=== PATIENT | male | born 1945 | race Caucasian/White ===

== ENCOUNTER → 2016-11-29 | Outpatient (CLI) | payer OTHER ==
[~2016-11-29] VITALS: Ht 185.4 cm; Wt 88.5 kg
[~2016-11-29] MED LIST: ASPIRIN325 PO; ATORVASTATIN CA40 MG PO; CARVEDILOL25 MG PO; IPRATROPIUM BRO15 ML NASAL; KRILL OIL500 MG PO; LUTEIN20 MG PO; METFORMIN HCL500 MG PO; MOVE FREE JOIN1 EACH PO; NORVASC5 MG PO; QUINAPRIL 20 MG20 MG PO
--- NOTE | ~2016-11-29 | EKG ---
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1945 Requested By: Demetrio Calderón Order Number: [id number] MD: Ruddy Khalil Measurements Intervals Condon Rate: 57 P: 17 IN: 167 QRS: -23 QRSD: 171 T: 85 QT: 489 QTc: 477 Interpretive Statements Sinus rhythm Left bundle branch block Compared to ECG 02/18/2004 08:51:00 No significant changes Electronically Signed On 11-29-2016 9:59:28 CDT by Ruddy Khalil [email or web address] <ELECTRONICALLY SIGNED> By: Ruddy Khalil MD, [facility] 11/29/1659 0 0 Ruddy Khalil MD, [facility] /EPI
--- NOTE | ~2016-11-29 | S ---
[facility] [place] [address] [place] [address] SURGICAL PATH RPT PROCEDURE Name: THERON FINCH Room #: REG [facility].#: [id number] Admission: 11/29/16 Date of : 43 Discharge: Report #: [id number] Path Case #: [id number] PATHOLOGY REPORT COLLECTION DATE: 11/29/2016 RECEIVED DATE: 11/30/2016 SUBMITTING PHYS: Dr. Demetrio Calderón OTHER PHYS: Dr. Ga Jones SPECIMEN(S) RECEIVED: A.Polyp-proximal ascending colon B.Polyp-hepatic flexure C.Polyp-50 cm D.Polyp-rectum * * * * * * * * * * * * FINAL DIAGNOSIS: A. "Polyp-proximal ascending colon," biopsy: - Tubular adenoma; no high-grade dysplasia. B. "Polyp-hepatic flexure," biopsy: - Colonic mucosa with focal hyperplastic change, consistent with hyperplastic polyp. C. "Polyp-50 cm," biopsy: - Tubular adenoma; no high-grade dysplasia. D. "Polyp-rectum," biopsy: - Hyperplastic polyp. (CLW:; 12/03/2016) PATHOLOGIST: Tati Johnston M.D. REPORT ELECTRONICALLY SIGNED BY: Tati Johnston M.D. DATE/TIME: 12/03/2016 21:19 * * * * * * * * * * * * GROSS PATHOLOGY: A. The specimen is received in formalin, labeled "Theron Finch, proximal ascending colon" and consists of a 0.3 cm kiser mucosal biopsy. Totally submitted as A1. B. The specimen is received in formalin, labeled "Theron Finch, polyp hepatic flexure" and consists of a 0.5 cm kiser mucosal biopsy. Totally submitted B1. C. The specimen is received in formalin, labeled "Theron Finch, polyp at 50 cm" and consists of a 0.3 cm kiser mucosal biopsy. Totally submitted as C1. D. The specimen is received in formalin, labeled "WilliansigTheron, polyp rectum" and consists of a 0.3 cm kiser mucosal biopsy. Totally submitted as D1. [address] [place] [address] SURGICAL PATH RPT PROCEDURE Name: THERON FINCH R Room #: REG [facility].#: [id number] Admission: 11/29/16 Date of : 43 Discharge: Report #: [id number] Path Case #: [id number] (CHIP; 11/30/2016) CLINICAL HISTORY: Colon polyps INITIAL CPT CODE(S): A; 61821 B; 22099 C; 59920 D; 26955 Professional services performed by [facility] at [address], [place] [address] Technical services performed by [facility] at [address] [place] [address], [facility] [address], [place] [address]. [facility] [address] [address] PHONE: [phone] DIRECTOR: Jose E Doss M.D. * * * END OF REPORT * * *
--- NOTE | ~2016-11-29 | P ---
[facility] [place] [address] [place] [address] PROCEDURE REPORT Name: YOBANY SIMS Room #: REG [facility].#: [id number] Admission: 11/29/16 Attend Phys: Demetrio Calderón MD Discharge: Date of : 43 Report #: [id number] THIS REPORT FOR: //name// CC: Demetrio Jones MD BRIEF HISTORY: The patient is a 71-year-old male with history of colon polyps for high risk screening colonoscopy due to prior history of colon polyps. PREOPERATIVE DIAGNOSIS: History of colon polyps. POSTOPERATIVE DIAGNOSIS: Colon polyps. MEDICATIONS: Deep sedation with propofol per anesthesia. SPECIMENS: 1. Polyp, proximal ascending colon. 2. Polyp, hepatic flexure. 3. Polyp at 50 cm. 4. Polyp, rectum. ESTIMATED BLOOD LOSS: 3 mL. PROCEDURE: Colonoscopy to cecum and terminal ileum with snare polypectomy and biopsy. FINDINGS: Prior to propofol sedation, procedure of colonoscopy discussed with the patient as well as potential risks, benefits, and complications. He indicates he understands and desires to proceed. With the patient in left lateral decubitus position, digital examination was completed, which revealed no abnormalities. Subsequently, the [email or web address] video colonoscope was introduced into the rectum, advanced under direct vision to the cecum. Done with minimal difficulty. The cecum was identified by the ileocecal valve and the appendiceal orifice. I was able to visualize the distal segment of terminal ileum, which was inspected and noted to be unremarkable. At that point, the scope was slowly withdrawn and careful circumferential views obtained including retroflexing the scope in the ascending colon. Upon slow withdrawal of the scope, the prep was noted be fairly good. There were some areas of stool remaining and we irrigated and cleaned up much of this material and overall a good prep was obtained. As we withdrew the scope, he was found to have a diminutive polyp in the proximal ascending colon, also . All of these polyps removed by biopsy. Scope was further withdrawn and no additional abnormalities were seen. Mucosa was normal throughout the colon. However, in the rectum, a 5-mm sessile polyp was seen and removed by cold snare polypectomy and recovered. Scope was withdrawn in the distal rectum. Upon retroflexion, [facility] [address] [place] [address] PROCEDURE REPORT Name: YOBANY SIMS Room #: REG [facility].#: [id number] Admission: 11/29/16 Attend Phys: Demetrio Calderón MD Discharge: Date of : 43 Report #: [id number] abnormalities were seen. Scope was withdrawn. The patient tolerated the procedure well. CONDITION OF THE PATIENT UPON DISCHARGE: Following procedure, the patient drowsy, aroused, conversant and will be discharged home when fully ambulatory. INSTRUCTIONS TO THE PATIENT AND FAMILY AT THE TIME OF DISCHARGE: Four polyps identified and removed as described above. We will follow up on the path. If 3 or more polyps are adenomas, he should return in 3 years. If one or two adenomas, 5 years will be indicated. If none are adenomas, then he may consider colonoscopy in 10 years, but on his overall health status at that point in time. He will return to the care of Dr. Ga Jones and return to see me as needed. Last colonoscopy was 5 years ago. Withdrawal time from the cecum was 24 minutes. <ELECTRONICALLY SIGNED> By: Demetrio Calderón MD 12/03/16 1948 [id number] Demetrio Calderón MD /nt
== END | disposition home or self-care (01) ==
LOC: GI 09:09
DX: Z09 Encounter for follow-up examination after completed treatment for conditions other than malignant neoplasm (principal); K63.5 Polyp of colon; I11.0 Hypertensive heart disease with heart failure; I50.9 Heart failure, unspecified; E11.9 Type 2 diabetes mellitus without complications; E78.5 Hyperlipidemia, unspecified; Z95.5 Presence of coronary angioplasty implant and graft; Z87.891 Personal history of nicotine dependence; Z87.442 Personal history of urinary calculi; Z98.890 Other specified postprocedural states; Z79.899 Other long term (current) drug therapy; Z79.82 Long term (current) use of aspirin
CPT/HCPCS: 62110; 62900